=== PATIENT | female | born 1995 | race Caucasian/White ===

== ENCOUNTER 2022-07-18 10:12 | Day surgery (SDC) | payer OTHER ==
[~2022-07-18] VITALS: Ht 154.9 cm; Wt 58.1 kg
[2022-07-18] MEDS ORDERED: NS 1,000 ML IV ONE (11:10)
[2022-07-18 11:25] LABS: BASO % 0.3 % (0.0-1.0); EOS % 0.4 % (0.0-3.0); HEMATOCRIT 37.4 % (36.0-47.0); HEMOGLOBIN 12.5 g/dl (12.0-15.5); LYMPH # 1.1 10^3/uL (1.5-5.0); LYMPH % 13.9 % (24.0-44.0); MEAN CORPUSCULAR HEMOGLOBIN 28.7 pg (27.0-33.0); MEAN CORPUSCULAR HGB CONC 33.4 g/dl (32.0-36.5); MEAN CORPUSCULAR VOLUME 85.8 fl (80.0-96.0); MONO # 0.4 10^3/uL (0.0-0.8); MONO % 4.8 % (2.0-8.0); NEUTROPHILS # 6.1 10^3/uL (1.5-8.5); NEUTROPHILS % 80.3 % (36.0-66.0); PLATELET COUNT, AUTOMATED 271 10^3/uL (150-450); RED BLOOD COUNT 4.36 10^6/uL (4.00-5.40); WHITE BLOOD COUNT 7.6 10^3/uL (4.0-10.0)
[2022-07-18 11:57] LABS: BLOOD UREA NITROGEN 10 MG/DL (9-23); CALCIUM LEVEL 8.6 MG/DL (8.5-10.1); CARBON DIOXIDE LEVEL 24 MMOL/L (20-31); CHLORIDE LEVEL 105 MMOL/L (98-107); CREATININE FOR GFR 0.57 MG/DL (0.55-1.30); GLOMERULAR FILTRATION RATE > 60.0 (>60); GLUCOSE, FASTING 90 MG/DL (60-100); POTASSIUM SERUM 3.5 MMOL/L (3.5-5.1); SODIUM LEVEL 137 MMOL/L (136-145)
[2022-07-18 12:29] LABS: HCG, SERUM QUANTITATIVE 704.4 MIU/ML (<4.2)
[2022-07-18] MEDS ORDERED: propofoL 200 MG/20 ML VIAL As Ordered ONE (12:55)
[2022-07-18] MEDS ORDERED: ACETAMINOPHEN 1000MG 100ML IV BAG As Ordered ONE (12:55)
[2022-07-18] MEDS ORDERED: LIDOCAINE 2% 100MG/5ML SDV (FOR ANES.) As Ordered ONE (12:55)
[2022-07-18] MEDS ORDERED: ONDANSETRON 4MG 2ML VIAL As Ordered ONE (12:55)
[2022-07-18] MEDS ORDERED: fentaNYL 100 MCG/2 ML INJECTION As Ordered ONE (12:56)
[2022-07-18] MEDS ORDERED: MIDAZOLAM INJ 2MG/2ML VIAL As Ordered ONE (12:56)
[2022-07-18] MEDS ORDERED: SUGAMMADEX SODIUM 500 MG/5 ML VIAL (BRIDION) As Ordered ONE ×2 (12:57→13:03)
[2022-07-18] MEDS ORDERED: ROCURONIUM BROMIDE 50MG/5ML VIAL As Ordered ONE (12:57)
[2022-07-18] MEDS ORDERED: KETOROLAC 60MG 2ML VIAL As Ordered ONE (13:05)
[2022-07-18] MEDS ORDERED: BUPIVACAINE HCL 0.25% 30ML VIAL As Ordered ONE (13:05)
[2022-07-18] MEDS ORDERED: SUCCINYLCHOLINE 100MG/5ML SYRINGE As Ordered ONE (13:15)
[2022-07-18 13:33] LABS: RSV AMPLIFICATION NEGATIVE (NEGATIVE)
[2022-07-18] MEDS ORDERED: PRENTAB53 PO (14:04)
[2022-07-18] MEDS ORDERED: IBUP200T46 PO (14:05)
[2022-07-18] MEDS ORDERED: HOME MED LIST COMPLETE! XX SCH (14:05)
[2022-07-18] MEDS ORDERED: HYDROMORPHONE HCL 0.5 MG/ 0.5 ML SYRINGE IV PRN (14:45)
[2022-07-18] MEDS ORDERED: fentaNYL 100 MCG/2 ML INJECTION IV PRN (14:45)
[2022-07-18] MEDS ORDERED: LR 1,000 ML IV SCH (14:45)
[2022-07-18] MEDS ORDERED: ONDANSETRON 4MG 2ML VIAL IV PRN (14:45)
[2022-07-18] MEDS ORDERED: oxyCODONE 5MG TAB PO PRN (14:45)
[2022-07-18] MEDS: MEPERIDINE 25 MG/ML 1ML VIAL IV PRN ×2 (14:56→15:04)
[2022-07-18 16:08] VITALS: BP 120/55
== END 2022-07-18 16:39 | disposition home or self-care (01) ==
LOC: M ED 10:12 → M SDC 10:13
PROVIDERS: ATTEND Obstetrics & Gynecology
DX: O00.102 Left tubal pregnancy without intrauterine pregnancy (principal); Z87.59 Personal history of other complications of pregnancy, childbirth and the puerperium
CPT/HCPCS: 36415; 59151; 76801; 76817; 80048; 84702; 85025; 86850; 86900; 86901; 87631; 88305; 93976; 96360; 99284; J0131; J0330; J1100; J1885; J2175; J2250; J2405; J3010; S0020